=== PATIENT | female | born 1985 | race Caucasian/White ===

== ENCOUNTER 2018-01-22 17:05 | Emergency (ER) | payer OTHER ==
--- NOTE | 2018-01-22 18:21 | PDOC ---
Rapid Medical Evaluation Time Seen by Provider: 01/22/18 18:17 Medical Evaluation: Allergies Allergy/AdvReac Type Severity Reaction Status Date / Time No Known Allergies Allergy Unverified 01/12/18 18:55 01/22/18 18:17 Pt presents for staple removal to R occipital region. No complaints Exam: 3 teri present. No sign of infection. AAOx3 Orders: nothing Pt to proceed to ED for further evaluation. Discharge Disposition - Diagnosis Removal of teri - Referrals - Patient Instructions - Post Discharge Activity
[2018-01-22 18:22] VITALS: BP 121/97; PULSE 85; TEMP 98.7
--- NOTE | 2018-01-22 18:35 | PDOC ---
Suture Removal/Wound Check HPI - History of Present Illness Chief Complaint: Suture/Staple Removal(Here) Stated Complaint: SUTURE REMOVAL Time Seen by Provider: 01/22/18 18:17 History Source: Yes: Patient Exam Limitations: Yes: No Limitations Treated at: [facility] Date of Last ED visit: 01/12/18 Past History - Past Medical History Allergies/Adverse Reactions: Allergies Allergy/AdvReac Type Severity Reaction Status Date / Time No Known Allergies Allergy Unverified 01/22/18 18:20 Home Medications: Ambulatory Orders NK [No Known Home Medication] 01/12/18 - Immunization History Immunization Up to Date: (2005) - Suicide/Smoking/Psychosocial Hx Smoking History: Never smoked Have you smoked in the past 12 months: No Hx Alcohol Use: No Drug/Substance Use Hx: No Substance Use Type: None *Physical Exam - Vital Signs Last Vital Signs Temp Pulse Resp BP Pulse Ox 98.7 F 85 18 121/97 99 01/22/18 18:20 01/22/18 18:20 01/22/18 18:20 01/22/18 18:20 01/22/18 18:20 Medical Decision Making - Medical Decision Making A/P: 3 teri removed from right posterior scalp. Wound healed well. *DC/Admit/Observation/Transfer Diagnosis at time of Disposition: Removal of teri - Discharge Dispostion Disposition: HOME Condition at time of disposition: Good - Referrals - Patient Instructions Printed Discharge Instructions: DI for Suture Removal - Post Discharge Activity
== END 2018-01-22 18:38 | disposition home or self-care (01) ==
LOC: JERFT 17:05 → JER 17:05 → JERFT 18:38
DX: Z48.817 Encounter for surgical aftercare following surgery on the skin and subcutaneous tissue (principal); Z48.02 Encounter for removal of sutures
CPT/HCPCS: 99281-25

== ENCOUNTER 2023-01-13 00:05 | Emergency (ER) | payer OTHER ==
[2023-01-13 00:15] VITALS: BP 115/80; PULSE 91; RESP 18; TEMP 98.5; BMI 32.1
[2023-01-13 01:56] LABS: POTASSIUM 4.4 mmol/L (3.5-5.1)
[2023-01-13 01:58] LABS: CALCIUM 9.1 mg/dL (8.5-10.1)
[2023-01-13 01:59] LABS: ALBUMIN 3.8 g/dl (3.4-5.0); BLOOD UREA NITROGEN 16.6 mg/dL (7-18)
[2023-01-13 02:02] LABS: CREATININE 1.1 mg/dL (0.55-1.3)
[2023-01-13 02:03] LABS: TOT PROT 7.3 g/dl (6.4-8.2)
[2023-01-13 02:04] LABS: BILIRUBIN,TOTAL 0.1 mg/dL (0.2-1)
== END 2023-01-13 02:50 | disposition home or self-care (01) ==
LOC: JER 00:05
DX: H92.02 Otalgia, left ear (principal); H66.92 Otitis media, unspecified, left ear; H69.92 Unspecified Eustachian tube disorder, left ear
CPT/HCPCS: 36415; 70450-TC; 80053; 84703; 99284-25